=== PATIENT | female | born 1985 ===

== ENCOUNTER 2017-02-01 19:03 | Emergency (ER) | payer SELFPAY ==
[2017-02-01 19:16] VITALS: BP 142/87; PULSE 102; RESP 16; TEMP 98.1; O2SAT 100
[2017-02-01] MEDS ORDERED: Oxycodone/Acetaminophen 5/325 mg Tab PO STA (19:43)
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
[2017-02-01] MEDS ORDERED: Oxycodone/Acetaminophen 5/325 mg Tab ONE (19:55)
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
== END 2017-02-01 21:29 | disposition home or self-care (01) ==
LOC: C.ER 19:03
DX: S39.012A Strain of muscle, fascia and tendon of lower back, initial encounter (principal); S93.401A Sprain of unspecified ligament of right ankle, initial encounter; S80.01XA Contusion of right knee, initial encounter; V43.62XA Car passenger injured in collision with other type car in traffic accident, initial encounter; Y92.410 Unspecified street and highway as the place of occurrence of the external cause